=== PATIENT | female | born 1995 | race Caucasian/White ===

== ENCOUNTER → 2021-06-25 | Day surgery (SDC) | payer OTHER ==
[~2021-06-25] MED LIST: COLACE 100MG C100 MG PO; HYDROCODON-ACE1 EAC2 PO; HYDROXYZINE HCL25 MG PO; IBUPROFEN600 MG PO; LORTAB 5-325 M1 EACH PO; METFORMIN HCL500 MG PO; NAPROSYN EC 50500 MG PO; PROAIR DIGIHAL90 MCG INH; PROZAC20 MG PO; ZOFRAN 4 MG TAB4 MG PO
[2021-06-25 08:12] LABS: HEMOGLOBIN 12.1 gm/dl (12.3-15.3); RED BLOOD COUNT 4.79 M/UL (4.00-5.10); WHITE BLOOD COUNT 9.8 K/UL (4.5-11.0)
== END | disposition home or self-care (01) ==
LOC: OR 07:34
PROVIDERS: Obstetrics & Gynecology
DX: N90.60 Unspecified hypertrophy of vulva (principal); I10 Essential (primary) hypertension; J45.909 Unspecified asthma, uncomplicated; N32.9 Bladder disorder, unspecified; F41.9 Anxiety disorder, unspecified; F33.9 Major depressive disorder, recurrent, unspecified; D64.9 Anemia, unspecified; E66.01 Morbid (severe) obesity due to excess calories; Z68.34 Body mass index [BMI] 34.0-34.9, adult; Z20.822 Contact with and (suspected) exposure to COVID-19; Z87.01 Personal history of pneumonia (recurrent)
CPT/HCPCS: 81001; 84702; 85025; J1100; J1170; J2001; J2250; J2405; J2704; J3010; J7120

== ENCOUNTER 2021-12-25 19:34 | Emergency (ER) | payer OTHER ==
[2021-12-25 20:24] LABS: HEMOGLOBIN 12.6 gm/dl (12.3-15.3); RED BLOOD COUNT 4.56 M/UL (4.00-5.10); WHITE BLOOD COUNT 14.6 K/UL (4.5-11.0)
[2021-12-25 20:50] LABS: BUN/CREATININE RATIO 13 (0-10)
[2021-12-26] MEDS ORDERED: PHENERGAN 25 MG25 M1 PO (02:04)
== END 2021-12-26 02:24 | disposition home or self-care (01) ==
LOC: ER1 19:34
PROVIDERS: Physician Assistant
DX: O21.2 Late vomiting of pregnancy (principal); J45.909 Unspecified asthma, uncomplicated; Z3A.21 21 weeks gestation of pregnancy
CPT/HCPCS: 80053; 81001; 83690; 85025; 87086; 96365; 99284; J2550

== ENCOUNTER 2022-03-18 18:34 | Outpatient (CLI) | payer OTHER ==
[~2022-03-18 18:34] MED LIST changes: +PHENERGAN 25 MG25 M1 PO
[2022-03-18 19:12] LABS: HEMOGLOBIN 10.7 gm/dl (12.3-15.3); WHITE BLOOD COUNT 15.5 K/UL (4.5-11.0)
[2022-03-18 19:34] LABS: BUN/CREATININE RATIO 20 (0-10)
[2022-03-18] MEDS ORDERED: MACROBID 100 M100 MG PO (20:35)
== END 2022-03-18 20:47 | disposition home or self-care (01) ==
LOC: GENOP 18:34
PROVIDERS: Obstetrics & Gynecology
DX: O13.3 Gestational [pregnancy-induced] hypertension without significant proteinuria, third trimester (principal); Z3A.33 33 weeks gestation of pregnancy
CPT/HCPCS: 36415; 80053; 81001; 82570; 83615; 84156; 84550; 85025

== ENCOUNTER 2022-04-13 04:53 | Inpatient (IN) | payer OTHER ==
[~2022-04-13] VITALS: Ht 152.4 cm; Wt 106.1 kg
[~2022-04-13 04:53] MED LIST changes: +MACROBID 100 M100 MG PO
[2022-04-13] MEDS ORDERED: PYRIDIUM100 MG PO (08:57)
[2022-04-13 09:35] LABS: HEMOGLOBIN 10.2 gm/dl (12.3-15.3); RED BLOOD COUNT 3.98 M/UL (4.00-5.10); WHITE BLOOD COUNT 11.5 K/UL (4.5-11.0)
[2022-04-13] MEDS ORDERED: DOCUSATE SODIU100 MG PO (17:47)
[2022-04-13] MEDS ORDERED: IBUPROFEN600 MG PO (17:47)
[2022-04-14 08:00] LABS: HEMOGLOBIN 10.3 gm/dl (12.3-15.3)
[2022-04-14] MEDS ORDERED: PROZAC20 MG PO (10:25)
== END 2022-04-15 14:02 | disposition home or self-care (01) | DRG 806 ==
LOC: OB 04:53
PROVIDERS: Obstetrics & Gynecology; ADMIT Obstetrics & Gynecology
PROC: 10H073Z Insertion of Monitoring Electrode into Products of Conception, Via Natural or Artificial Opening (ICD-10-PCS; principal; 2022-04-13)
PROC: 10907ZC Drainage of Amniotic Fluid, Therapeutic from Products of Conception, Via Natural or Artificial Opening (ICD-10-PCS; principal; 2022-04-13)
PROC: 10E0XZZ Delivery of Products of Conception, External Approach (ICD-10-PCS; principal; 2022-04-13)
PROC: 10H07YZ Insertion of Other Device into Products of Conception, Via Natural or Artificial Opening (ICD-10-PCS; principal; 2022-04-13)
PROC: 4A1HXCZ Monitoring of Products of Conception, Cardiac Rate, External Approach (ICD-10-PCS; principal; 2022-04-13)
PROC: 3E0234Z Introduction of Serum, Toxoid and Vaccine into Muscle, Percutaneous Approach (ICD-10-PCS; 2022-04-13)
DX: O99.344 Other mental disorders complicating childbirth (principal); O72.1 Other immediate postpartum hemorrhage; Z37.0 Single live birth; O14.04 Mild to moderate pre-eclampsia, complicating childbirth; Z20.822 Contact with and (suspected) exposure to COVID-19; Z3A.37 37 weeks gestation of pregnancy; F41.9 Anxiety disorder, unspecified; F53.0 Postpartum depression; F32.A Depression, unspecified; Z87.440 Personal history of urinary (tract) infections; Z98.890 Other specified postprocedural states; Z81.8 Family history of other mental and behavioral disorders; Z83.3 Family history of diabetes mellitus; Z82.49 Family history of ischemic heart disease and other diseases of the circulatory system; Z82.0 Family history of epilepsy and other diseases of the nervous system; Z80.41 Family history of malignant neoplasm of ovary; Z83.49 Family history of other endocrine, nutritional and metabolic diseases; Z84.1 Family history of disorders of kidney and ureter; Z23 Encounter for immunization
CPT/HCPCS: 36415; 81001; 82800; 85014; 85018; 85025; 90715; J0595; J2210; J2405; J2590; J3010